=== PATIENT | female | born 1955 | race Caucasian/White ===

== ENCOUNTER 2021-09-03 19:18 | Emergency (ER) | payer MEDICARE, SELFPAY ==
[2021-09-03 19:29] VITALS: BP 178/89; PULSE 71; RESP 22; TEMP 36.6; O2SAT 98; BMI 27.4
[2021-09-03 20:19] LABS: RBC Urine 0-1/HPF (0-5/HPF)
[2021-09-03 20:20] LABS: Bacteria Urine Occasional (0-1); Squamous Epithelial Cell Urine 0-1 /HPF (0-5/HPF); WBC Urine 0-1/HPF (0-5/HPF)
--- NOTE | 2021-09-03 20:25 | DI.US.S_ITS ---
PROCEDURE: US ABDOMEN LIMITED INDICATIONS: RUQ PAIN TECHNIQUE: Real-time focused scanning was performed of the abdomen, with image documentation. COMPARISON: None. FINDINGS: The liver is normal in size without focal hepatic mass lesions identified. Gallbladder demonstrates no stones, wall thickening, or pericholecystic fluid. No intra or extrahepatic biliary ductal dilatation. The common bile duct measures up to 4 mm. Pancreas was not well seen due to bowel gas IMPRESSION: 1. No evidence of cholelithiasis or cholecystitis. 2. No biliary ductal dilatation. Dictated by: Neptali Briones M.D. on 09/03/2021 at 21:19 Approved by: Neptali Briones M.D. on 09/03/2021 at 21:20
[2021-09-03] MEDS: diphenhydrAMINE 50 MG/ML VIAL 25 MG IV (20:52)
[2021-09-03] MEDS: METOCLOPRAMIDE 10 MG/2 ML INJ IV (20:52)
[2021-09-03] MEDS: SODIUM CHLORIDE 0.9% 1,000 ML 1000 ML IV (20:52)
[2021-09-03] MEDS: HYDROMORPHONE 0.5 MG INJ IV (20:53)
[2021-09-03 20:55] LABS: Add Manual Diff / Slide Review NO; Basophils Absolute Auto 0 /uL (0-100); Basophils Percent Auto 0.8 % (0-2); Eosinophils Absolute Auto 100 /uL (0-450); Eosinophils Percent Auto 1.8 % (2-4); Hematocrit 37.6 % (36-46); Hemoglobin 12.8 g/dL (12.0-16.0); Lymphocytes Absolute Auto 2600 /uL (1100-4500); Lymphocytes Percent Auto 44.8 % (25-40); Mean Corpuscular HGB Conc 34.2 % (30-36); Mean Corpuscular Hemoglobin 29.7 PG (26-34); Monocytes Absolute Auto 400 /uL (0-900); Monocytes Percent Auto 6.6 % (3-14); Neutrophils Absolute Auto 2700 /uL (1500-7000); Platelet Count 212 X10^3/uL (150-400); Red Blood Cell Count 4.32 X10^6/uL (4.0-5.2); Red Cell Distribution Width 13.8 % (11.6-14.8); White Blood Cell Count 5.8 X10^3/uL (4.5-11.0)
--- NOTE | 2021-09-03 21:04 | PC.NURSE ---
Records received from [facility] and given to Dr. Lizarraga
[2021-09-03 21:22] LABS: Alanine Aminotransferase 18 IU/L (<35); Albumin 4.6 g/dL (3.5-5.0); Albumin Globulin Ratio 1.4 (1.0-2.8); Alkaline Phosphatase 74 U/L (38-126); Aspartate Aminotransferase 25 IU/L (14-36); BUN Creatinine Ratio 20.5 (6-22); Bilirubin Total 0.7 mg/dL (0.2-1.3); Blood Urea Nitrogen 17 mg/dL (7-17); Calcium 9.7 mg/dL (8.4-10.2); Carbon Dioxide 23 mmol/L (22-32); Chloride 108 mmol/L (98-107); Estimated Glomerular Filt Rate > 60.0 mL/min (>60); Globulin 3.2 g/dL (1.7-4.1); Glucose 92 mg/dL (80-110); HEMOLYSIS < 15 (0-50); Lipase 127 U/L (23-300); Potassium 3.5 mmol/L (3.4-5.1); Sodium 138 mmol/L (137-145); Total Protein 7.8 g/dL (6.3-8.2)
[2021-09-03 21:34] LABS: Troponin I < 0.012 ng/mL (0.01-0.034)
--- NOTE | 2021-09-03 22:55 | ED.GENADULT ---
[facility] - General Adult General Chief complaint: Abdominal Pain Stated complaint: severe abd pain Time Seen by Provider: 09/03/21 20:14 Source: patient Mode of arrival: Ambulatory History of Present Illness HPI narrative: 66-year-old woman with a history of hypothyroidism, prior kidney stones presents with bandlike pain around her upper abdomen. This is been getting significantly worse over the last month. She has had 3 visits to [facility]. With initial visit on 07/26 she is complaining of more epigastric to left-sided to left chest pain with concerns for hypertension and a full cardiac workup was done that was unremarkable. There was question as to whether her thyroid issues may have been causing some of the problems. Her TSH was slightly suppressed in the been working on decreasing her thyroid does, she was discharged home with metoprolol. She return to the ER on 07/27 with complaints of chest pain from the metoprolol. She was complaining of chest pain as well as bandlike abdominal pain at that time, again cardiac workup was unremarkable. She was seen for a 3rd time on the now with clear abdominal pain radiating into the right upper quadrant wondering if she had kidney stones. CT scan of the abdomen showed no kidney stones no significant abnormalities otherwise. She has been seen by her primary care doctor as this pain now is truly localizing into the right upper quadrant radiating through to her back with bandlike tenderness. Not associated with eating or not eating. She has been nauseated. She has not been having any diarrhea or fevers. She is scheduled for a retroperitoneal ultrasound tomorrow but having so much pain in the right upper quadrant this evening that she comes in today for further evaluation. She is frustrated that she has been feeling unwell for the last number of months, that she is having difficulty accessing healthcare, that she has not received any specific recommendations regarding her thyroid and is concerned that that may be causing all of her issues (her TSH is 0.197). CT scan on July 31 shows normal liver, biliary tract, bile ducts, pancreas, adrenal glands, kidneys, aorta and retroperitoneum with no bowel abnormality. Review of Systems Review of Systems Narrative: Remainder of complete review of systems is otherwise unremarkable except for that included in the HPI. Patient History Medical History (Updated 09/04/21 @ 00:02 by Cherry Lizarraga MD) Hypothyroidism (acquired) Exam Initial Vital Signs Initial Vital Signs: Vital Signs Temperature 98 F 03/30/22 19:29 Pulse Rate 71 09/03/21 19:29 Respiratory Rate 22 09/03/21 19:29 Blood Pressure 178/89 H 09/03/21 19:29 Pulse Oximetry 98 09/03/21 19:29 General: Appears uncomfortable, Able to give a complete and coherent history. Well-nourished well-developed HEENT: Moist mucous membranes, normal sclera with reactive pupils, Neck: No JVD, supple Respiratory: Lungs are clear to auscultation, no wheezing no rales no rhonchi. Full and symmetrical air movement Cardiac: Regular rate and rhythm no murmurs no bruits Abdomen: Soft, tender in the right upper quadrant to the epigastrium without rebound or guarding, good bowel tones, no flank pain Skin: Warm and dry, no rashes Neurologic: Grossly neurologically intact with no obvious asymmetries or abnormalities Extremities: No trauma, well perfused Psych: Cooperative, appropriate insight and affect Course Orders Ordered: ED Orders 09/03/21 19:40 Urine Culture Stat Urine Microscopic Stat 09/03/21 20:25 US abdomen limited Stat 09/03/21 20:45 Complete Blood Count AUTO DIFF Stat Comprehensive Metabolic Panel Stat Lipase Stat Magnesium Stat Troponin I Stat Hydromorphone HCl (Hydromorphone 0.5 Mg Inj) 0.5 mg IV Q15MIN PRN PRN Reason: Pain, Last Admin: 09/03/21 20:53 Dose: 0.5 mg Documented by: ROMEO Discontinued Medications Diphenhydramine HCl (Diphenhydramine 50 Mg/Ml Vial) 25 mg IV NOW ONE Stop: 09/03/21 20:25 Last Admin: 09/03/21 20:52 Dose: 25 mg Documented by: ROMEO Sodium Chloride (Normal Saline 0.9%) 1,000 mls @ 1,000 mls/hr IV BOLUS ONE Stop: 09/03/21 21:23 Last Infusion: 09/03/21 22:34 Dose: 0 mls/hr Documented by: Admin: 09/03/21 20:52 Dose: 1,000 mls/hr Documented by: ROMEO Metoclopramide HCl (Metoclopramide 10 Mg/2 Ml Inj) 10 mg IV NOW ONE Stop: 09/03/21 20:25 Last Admin: 09/03/21 20:52 Dose: 10 mg Documented by: ROMEO Vital Signs Vital signs: Vital Signs - 8 hr 09/03/21 19:29 Temperature 98 F Pulse Rate 71 Respiratory Rate 22 Blood Pressure 178/89 H Pulse Oximetry 98 Medical Decision Making Lab Data Result diagrams: 09/03/21 20:45 09/03/21 20:45 Labs: Lab Results 09/03/21 09/03/21 09/03/21 Range/Units 19:40 20:45 20:45 WBC 5.8 (4.5-11.0) X10^3/uL RBC 4.32 (4.0-5.2) X10^6/uL Hgb 12.8 (12.0-16.0) g/dL Hct 37.6 (36-46) % MCV 87.0 (80-100) fL MCH 29.7 (26-34) PG MCHC 34.2 (30-36) % RDW 13.8 (11.6-14.8) % Plt Count 212 (150-400) X10^3/uL Neut % (Auto) 46.0 L (50-75) % Lymph % (Auto) 44.8 H (25-40) % [place] % (Auto) 6.6 (3-14) % Eos % (Auto) 1.8 L (2-4) % Baso % (Auto) 0.8 (0-2) % Neut # (Auto) 2700 (6377-8413) /uL Lymph # (Auto) 2600 (5097-6609) /uL [place] # (Auto) 400 (0-900) /uL Eos # (Auto) 100 (0-450) /uL Baso # (Auto) 0 (0-100) /uL Sodium 138 (137-145) mmol/L Potassium 3.5 (3.4-5.1) mmol/L Chloride 108 H (98-107) mmol/L Carbon Dioxide 23 (22-32) mmol/L BUN 17 (7-17) mg/dL Creatinine 0.83 (0.52-1.04) mg/dL Estimated GFR > 60.0 (>60) mL/min BUN/Creatinine Ratio 20.5 (6-22) Glucose 92 (80-110) mg/dL Calcium 9.7 (8.4-10.2) mg/dL Magnesium 2.0 (1.6-2.3) mg/dL Total Bilirubin 0.7 (0.2-1.3) mg/dL AST 25 (14-36) IU/L ALT 18 (<35) IU/L Alkaline Phosphatase 74 (38-126) U/L Troponin I < 0.012 (0.01-0.034) ng/mL Total Protein 7.8 (6.3-8.2) g/dL Albumin 4.6 (3.5-5.0) g/dL Globulin 3.2 (1.7-4.1) g/dL Albumin/Globulin Ratio 1.4 (1.0-2.8) Lipase 127 (23-300) U/L Urine RBC 0-1/hpf (0-5/HPF) Urine WBC 0-1/hpf (0-5/HPF) Ur Squamous Epith Cells 0-1 /hpf (0-5/HPF) Urine Bacteria Occasional (0-1) (None) Ur Culture Indicated? Culture not indicate Urine Dip Bedside Urine Glucose Negative Bedside Urine Bilirubin - Negative Bedside Urine Ketone +/- 5 Urine Specific [place] 1.015 Bedside Urine Occult Blood +/- Bedside Urine pH 7.0 Bedside Urine Protein - Negative Bedside Urine Urobilinogen - Negative Bedside Urine Nitrite - Negative Bedside Urine Leukocytes - Negative Esterase Point of care testing: Urine Dip Bedside Urine Glucose Negative Bedside Urine Bilirubin - Negative Bedside Urine Ketone +/- 5 Urine Specific [place] 1.015 Bedside Urine Occult Blood +/- Bedside Urine pH 7.0 Bedside Urine Protein - Negative Bedside Urine Urobilinogen - Negative Bedside Urine Nitrite - Negative Bedside Urine Leukocytes - Negative Esterase Imaging Data US - abdomen: Radiologist's Impression: FINDINGS:? ? The liver is normal in size without focal hepatic mass lesions identified. ? Gallbladder demonstrates no stones, wall thickening, or pericholecystic fluid. ? No intra or extrahepatic biliary ductal dilatation.? The common bile duct measures up to 4 mm. ? Pancreas was not well seen due to bowel gas ? IMPRESSION:? ? 1. No evidence of cholelithiasis or cholecystitis.? ? 2. No biliary ductal dilatation.? ? ? Dictated by: Neptali Briones M.D. on 09/03/2021 at 21:19 ? ? MDM Narrative Medical decision making narrative: 66-year-old woman with 3 months of increasing abdominal pain with multiple interactions with the medical community and no obvious answers at this point. She has had a normal CT scan of the abdomen, today's ultrasound was unremarkable, repeated blood work has been unremarkable with the exception of a mildly suppressed TSH. Reviewed in detail with patient the normal lab results, ultrasound, prior CT results and reassured her that she does not have an obvious cancer, tumor, mass, finding that would need hospitalization. We did briefly discuss the possibility of a gastric ulcer being able to cause symptoms such as these. She notes that she had an endoscopy about a year ago that showed some mild inflammation but no other issues and Prilosec caused her worsening constipation. She does have an appointment with an dry house operator in 2 days. I encouraged her to follow-up with her primary care doctor, have given her copies of today's lab as well as ultrasound results and the notes from her 3 piece healthy ER visits in July. At this time there is no life-threatening etiology identified with extensive differential considered and reviewed in detail with her. She is safe for home discharge Discharge Plan Departure Patient Disposition: Home Clinical Impression: Abdominal pain Instructions: DI for Abdominal Pain-Adult Activity Restrictions/Additional Instructions: I am sorry that you are suffering so much With today's workup, I did not find any evidence of gallbladder, gallstone, liver, stomach, pancreas, colon or kidney problems. With the CT scan done at [facility] on the there were no obvious masses or tumors and note made that your adrenal glands did look reassuring. I would recommend that you follow-up with Dr. Greene as well as keeping your appointment on Wednesday with the dry house operator. I hope that you do come to an answer and that your suffering is minimized. I wish you the best Referrals: Jules Segura MD [Primary Care Provider] -
[2021-09-04 00:14] VITALS: BP 154/82; PULSE 70; RESP 20; O2SAT 98
== END 2021-09-04 00:15 | disposition home or self-care (01) ==
PROVIDERS: Emergency Provider Emergency Medicine; PCP Family Medicine
DX: R10.11 Right upper quadrant pain (principal); R10.13 Epigastric pain
CPT/HCPCS: 36415; 76705; 80053; 81003; 81015; 83690; 83735; 84484; 85025; 87086; 96361; 96374; 96375; 99284; J1170; J1200; J2765